=== PATIENT | male | born 1980 | race African-American/Black ===

== ENCOUNTER 2020-08-09 08:15 | Emergency (ER) | payer MEDICAID, OTHER ==
[~2020-08-09] VITALS: Ht 182.9 cm; Wt 81.6 kg
[2020-08-09 08:22] VITALS: BP 132/84
[2020-08-09] MEDS ORDERED: ACETAMINOPHEN/CODEINE#3 (300/30mg) TAB PO ONE (08:45)
== END 2020-08-09 11:07 | disposition home or self-care (01) ==
LOC: ER 08:15 → EDBD 08:15 → ER 11:07
DX: S63.91XA Sprain of unspecified part of right wrist and hand, initial encounter (principal); S83.91XA Sprain of unspecified site of right knee, initial encounter; M54.5 Low back pain; V43.52XA Car driver injured in collision with other type car in traffic accident, initial encounter; Y93.89 Activity, other specified; Y92.488 Other paved roadways as the place of occurrence of the external cause; Y99.8 Other external cause status
CPT/HCPCS: 70450; 72040; 72100; 73130; 73562